=== PATIENT | male | born 1980 | race Caucasian/White ===

== ENCOUNTER 2023-04-01 18:38 | Emergency (ER) | payer OTHER ==
[~2023-04-01] VITALS: Ht 165.1 cm; Wt 82.0 kg
[2023-04-01] MEDS ORDERED: IBUPROFEN 400MG TABLET PO ONE (19:15)
[2023-04-01] MEDS ORDERED: TETRACAINE 0.5% OPHTH DROPS 4ML LEFTEYE ONE (19:15)
[2023-04-01] MEDS ORDERED: FLUORESCEIN SODIUM 1MG/STRIP LEFTEYE ONE (19:15)
[2023-04-01] MEDS ORDERED: IBUP-2028 MT (20:27)
[2023-04-01 20:45] VITALS: BP 138/78
== END 2023-04-01 20:46 ==
LOC: ER 18:38
DX: H57.12 Ocular pain, left eye (principal); M79.602 Pain in left arm; M79.601 Pain in right arm; I10 Essential (primary) hypertension
CPT/HCPCS: 99284